=== PATIENT | male | born 1990 | race Two or more races ===

== ENCOUNTER 2019-01-24 09:56 | Emergency (ER) | payer OTHER ==
[2019-01-24 10:06] VITALS: BP 145/79
[2019-01-24] MEDS ORDERED: AMOX/CLAV 875 MG/125 MG TABLET PO STA (11:25)
--- NOTE | 2019-01-24 11:28 | ED Physician Documentation ---
PD HPI ANIMAL BITE - Stated complaint Stated Complaint: L HAND CAT BITE - Chief complaint Chief Complaint: Laceration - History obtained from History obtained from: Patient - History of Present Illness Location of injury(ies): Right hand, Left hand Details of the event: Cat, Immunization unknown, Provoked Timing - onset: Yesterday Recently seen: Clinic (Seen in clinic and sent here.) - Additional information Additional information: The patient is a 28-year-old male who was bitten by a feral cat yesterday. He was bitten on both hands and scratched on the right wrist. His tetanus status is up-to-date. The cat's rabies status is unknown. The cat had been trapped by the patient's friends, but they decided they could not keep the cat, so were forcing it into a cat box to get rid of it when it scratched the patient. Review of Systems Constitutional: denies: Fever Nose: denies: Congestion Throat: denies: Sore throat Respiratory: denies: Cough GI: denies: Nausea, Vomiting Skin: reports: Bite / sting Neurologic: denies: Focal weakness, Numbness PD PAST MEDICAL HISTORY - Past Medical History Past Medical History: No Endocrine/Autoimmune: None - Past Surgical History Past Surgical History: No - Present Medications Home Medications: Ambulatory Orders Medication Instructions Recorded Confirmed Amox/Clav 875/125 [Augmentin] 1 each PO Q12H #6 tablet 01/24/19 - Allergies Allergies/Adverse Reactions: Allergies Allergy/AdvReac Type Severity Reaction Status Date / Time No Known Drug Allergies Allergy Verified 01/24/19 10:02 - Social History Does the pt smoke?: No Smoking Status: Never smoker Does the pt drink ETOH?: No Does the pt have substance abuse?: No - Immunizations Immunizations are current?: Yes - POLST Patient has POLST: No PD ED PE NORMAL - Vitals Vital signs reviewed: Yes (Systolic hypertension initially.) - General General: Alert and oriented X 3, Well developed/nourished - HEENT HEENT: Atraumatic - Respiratory Respiratory: No respiratory distress - Derm Derm: No rash - Extremities Extremities: Other (Superficial bite bear on both hands, and scratch nida on the right wrist. No swelling or erythema. Distal neurovascular is intact.) Results - Vitals Vitals: Oxygen O2 Source Room air PD MEDICAL DECISION MAKING - ED course Complexity details: considered differential, d/w patient ED course: The patient's presentation is significant for cat bites to both hands. These are superficial with no current sign of infection. Treatment in the emergency department included administration of Augmentin 1 tablet orally. He is being discharged with a short course of Augmentin. I discussed with him that rabies on [facility] is very unusual except in bats. I do not think it is clinically warranted to treat him prophylactically for rabies. I discussed with him potentially worrisome signs or symptoms that should prompt reevaluation in the emergency department. Departure - Departure Disposition: 01 Home, Self Care Clinical Impression: Cat bite involving extremity Condition: Stable Instructions: ED Bite Cat Follow-Up: ALIA VILLEDA MD [Primary Care Provider] - Prescriptions: Amox/Clav 875/125 [Augmentin] 1 each PO Q12H #6 tablet Comments: Take Augmentin twice daily as prescribed. You can use Tylenol or ibuprofen as needed for discomfort. Follow-up with your primary physician, or return to the emergency department if you develop increasing redness or swelling of the extremities, or otherwise worsening symptoms. Discharge Date/Time: 01/24/19 11:39
== END 2019-01-24 11:39 | disposition home or self-care (01) ==
LOC: ED 09:56
DX: S61.452A Open bite of left hand, initial encounter (principal); S61.451A Open bite of right hand, initial encounter; S60.811A Abrasion of right wrist, initial encounter; W55.01XA Bitten by cat, initial encounter; W55.03XA Scratched by cat, initial encounter; Y92.009 Unspecified place in unspecified non-institutional (private) residence as the place of occurrence of the external cause
CPT/HCPCS: 99283; A9270